=== PATIENT | male | born 1970 ===

== ENCOUNTER 2017-06-21 11:11 | Emergency (ER) | payer OTHER ==
[2017-06-21 11:17] VITALS: O2SAT 99; BMI 27.6
--- NOTE | 2017-06-21 12:32 | ED PDOC ---
HPI: Back Time Seen by Provider: 06/21/17 12:11 Chief Complaint (Nursing): Back Pain Chief Complaint (Provider): Back Pain History Per: Patient, Family ( is translating in kyrgyz for patient) History/Exam Limitations: no limitations Onset/Duration Of Symptoms: Days (x2 weeks) Current Symptoms Are (Timing): Still Present Additional Complaint(s): 46 y/o male with no significant pmhx, presents to the ED with for evaluation of low back pain x2 weeks. Per , patient's back pain has worsened over the past 2 days prompting ED visit. 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 She also states the patient took 600mg Ibuprofen at 2000 yesterday with minimal relief. She reports the patient is able to slowly ambulate with pain. Denies any direct injury, fall, or trauma. Also denies any dysuria, fever or chills. PMD: None Past Medical History Reviewed: Historical Data, Nursing Documentation, Vital Signs Vital Signs: Last Vital Signs Temp 98 F 06/21/17 11:17 Pulse 56 L 06/21/17 11:17 Resp 17 06/21/17 11:17 BP 186/108 H 06/21/17 11:17 Pulse Ox 99 06/21/17 11:17 - Medical History PMH: No Chronic Diseases - Surgical History Surgical History: No Surg Hx - Family History Family History: States: No Known Family Hx - Living Arrangements Living Arrangements: With Family - Social History Current smoker - smoking cessation education provided: No Alcohol: Social Drugs: Denies - Home Medications Home Medications: Ambulatory Orders Medication Instructions Recorded Cyclobenzaprine [Cyclobenzaprine 10 mg PO TID PRN #20 tab 06/21/17 HCl] Naproxen [Naprosyn] 500 mg PO BID #20 tab 06/21/17 - Allergies Allergies/Adverse Reactions: Allergies Allergy/AdvReac Type Severity Reaction Status Date / Time No Known Allergies Allergy Verified 06/21/17 11:31 Review of Systems ROS Statement: Except As Marked, All Systems Reviewed And Found Negative Constitutional: Negative for: Fever Cardiovascular: Negative for: Chest Pain Respiratory: Negative for: Cough Genitourinary Male: Negative for: Dysuria, Frequency, Incontinence, Hematuria Musculoskeletal: Positive for: Back Pain (low back pain for 2 weeks s/p heavy lifting) Physical Exam - Reviewed Nursing Documentation Reviewed: Yes Vital Signs Reviewed: Yes - Physical Exam Appears: Positive for: Well, Non-toxic, No Acute Distress Head Exam: Positive for: ATRAUMATIC, NORMAL INSPECTION, NORMOCEPHALIC Skin: Positive for: Normal Color. Negative for: Rash Eye Exam: Positive for: Normal appearance Cardiovascular/Chest: Positive for: Regular Rate, Rhythm Respiratory: Positive for: Normal Breath Sounds Back: Positive for: Vertebral Tenderness (tenderness to the midline lumbar spine , no step off; unable to perform straight leg raise secondary to pain). Negative for: L CVA Tenderness, R CVA Tenderness Neurologic/Psych: Positive for: Alert, Oriented - ECG O2 Sat by Pulse Oximetry: 99 (RA) Pulse Ox Interpretation: Normal - Other Rad L/S Spine X-ray X-Ray: Interpreted by Me, Viewed By Me X-Ray Interpretation: no fx, no dis Medical Decision Making Medical Decision Makin:32 Initial Impression: 46 y/o male with low back pain Plan: --Toradol 30mg IM --Tylenol 975 mg PO --Ultram 50mg PO --Valium 5mg PO --X-Ray LS Spine --Reevaluation Patient feels better after pain meds given. Patient is aware of x-ray results. All questions answered. Prescriptions provided for Naprosyn and Flexeril. Patient was advised to rest and avoid heavy lifting. He was referred to clinic or follow up. Scribe Attestation: Documented by Ant Johnson, acting as a scribe for Anna Marie Pond PA-C. Provider Scribe Attestation: All medical record entries made by the Scribe were at my direction and personally dictated by me. I have reviewed the chart and agree that the record accurately reflects my personal performance of the history, physical exam, medical decision making, and the department course for this patient. I have also personally directed, reviewed, and agree with the discharge instructions and disposition. Disposition - Clinical Impression Clinical Impression: Back strain - Patient ED Disposition Is Patient to be Admitted: No Counseled Patient/Family Regarding: Studies Performed, Diagnosis, Need For Followup, Rx Given - Disposition Referrals: [facility] [Outside] Disposition: Routine/Home Disposition Time: 13:30 Condition: IMPROVED Additional Instructions: Take prescription meds as directed as needed for pain. Rest and avoid heavy lifting. Follow-up with clinic for any persistent symptoms. Prescriptions: Cyclobenzaprine [Cyclobenzaprine HCl] 10 mg PO TID PRN #20 tab PRN Reason: Muscle Spasm Naproxen [Naprosyn] 500 mg PO BID #20 tab Instructions: Back Exercises, Low Back Pain in Adults, Muscle Strain Forms: [facility] (Telugu), [facility] ED School/Work Excuse Print Language: CZECH
--- NOTE | 2017-06-21 13:20 | RAD ---
PROCEDURE: Radiographs of the Lumbar Spine. HISTORY: Pain COMPARISON: No prior study available for comparison FINDINGS: BONES: No evidence of acute compression fractures no retropulsed fragments. Vertebral bodies exhibit normal stature. DISC SPACES: Disc space heights maintained. Tiny marginal anterior osteophytes are seen at several levels OTHER FINDINGS: None. IMPRESSION: No evidence of acute compression fractures nor retropulsed fragments
[2017-06-21 13:42] VITALS: BP 149/85; PULSE 52; RESP 18; TEMP 98.1
== END 2017-06-21 14:12 | disposition home or self-care (01) ==
LOC: H.ER 11:11
DX: S39.012A Strain of muscle, fascia and tendon of lower back, initial encounter (principal); X50.9XXA Other and unspecified overexertion or strenuous movements or postures, initial encounter; Y99.0 Civilian activity done for income or pay
CPT/HCPCS: 72100; 96372; 99283; J1885